=== PATIENT | male | born 1990 | race Caucasian/White ===

== ENCOUNTER 2024-11-20 01:23 | Emergency (ER) | payer MEDICAID ==
[~2024-11-20] VITALS: Ht 180.3 cm; Wt 65.2 kg
[2024-11-20 01:43] VITALS: BP 119/83; PULSE 125; RESP 18; TEMP 36.9; O2SAT 99
[2024-11-20] MEDS: LIDOCAINE HCL 1% 20ML VIAL INFIL ONE (05:00)
[2024-11-20] MEDS ORDERED: ACET-2708 MT (05:27)
[2024-11-20] MEDS ORDERED: CEPH250C2 MT (05:27)
== END 2024-11-20 05:37 | disposition home or self-care (01) ==
LOC: ER 01:34
DX: L02.31 Cutaneous abscess of buttock (principal)
CPT/HCPCS: 10060; 99283; J3490; Z7610